=== PATIENT | male | born 1985 | race Caucasian/White ===

== ENCOUNTER 2016-06-28 15:38 | Emergency (ER) | payer SELFPAY ==
--- NOTE | 2016-06-28 16:24 | ED Physician Documentation ---
Sore Throat/Dental Pain - HISTORIAN Historian: patient - HPI Stated Complaint: hx of dental problems, left cheek swollen Chief Complaint: Dental Pain Additional Information: lt upper canione tooth plain facial swelling- pt has very many markedly deteriorated carious and fx teeth Onset: days ago (2-3) Context: Fractured Tooth, Abscess, Dental Caries Associated Symptoms: moderate, severe Worsened By: heat Further Comments: yes (pt must heve dental repain-it is potentially quite deleterious to his health) - ROS CONST: no problems CVS/RESP: none GI/: denies: problems urinating, nausea, vomiting MS/SKIN/LYMPH: denies: muscle aches, rash, leg swelling, ankle swelling NEURO/PSYCH: none - PAST HX Past History: gum disease (most all teeth missing or very poor conditionwith massive pyrorrhea fractures marked discoloration multi caries.) Other History: none Allergies/Adverse Reactions: Allergies Allergy/AdvReac Type Severity Reaction Status Date / Time No Known Allergies Allergy Verified 06/28/16 16:08 Home Medications: Ambulatory Orders Medication Instructions Recorded Amoxicillin [Amoxil] 500 mg PO QID #40 capsule 06/28/16 - SOCIAL HX Smoking History: less than 1 pack/day Alcohol Use: none Drug Use: none - FAMILY HX Family History: No - VITAL SIGNS Vital Signs: Vital Signs Temp Pulse Resp BP Pulse Ox 98.3 F 87 16 122/73 98 06/28/16 16:01 06/28/16 16:01 06/28/16 16:01 06/28/16 16:01 06/28/16 16:01 - REVIEWED ASSESSMENTS Nursing Assessment Reviewed: Yes Vitals Reviewed: Yes Dental Pain Physical Exam - EXAM General Appearance: moderate distress Head/Neck: head nml inspection, trachea midline, maxillary swelling (L), facial erythema, cervical lymphadenopathy, anterior. No: no lymphadenopathy (lt ant cervical) Eyes: eyes nml inspection Mouth/Throat: No: gums nml (marked retraction debris at gumline) Ear/Nose: nml inspection. No: TM erythema Respiratory: no resp. distress, breath sounds nml CVS: reg. rate & rhythm, heart sounds nml Abdomen: soft, non-tender Extremities: non-tender, nml ROM, other (lt bka) Skin: warm/dry, normal color. No: cyanosis Neuro/Psych: No: anxiety, depression Discharge Clincal Impression: lt upper dental sepsis and abscess, marked general very poor dentition Prescriptions: Amoxicillin [Amoxil] 500 mg PO QID #40 capsule Referrals: Primary Doctor,No [Primary Care Provider] - 2 Days Home Medications: Ambulatory Orders Amoxicillin [Amoxil] 500 mg PO QID #40 capsule 06/28/16 Comments: absolutely must see dentist- high risk for sepsis spread Condition: Fair Disposition: HOME, SELF-CARE Decision to Admit: NO Decision Time: 16:34
[2016-06-28 16:46] VITALS: BP 110/70
== END 2016-06-28 16:40 | disposition home or self-care (01) ==
LOC: ED 15:38
DX: K02.9 Dental caries, unspecified (principal)
CPT/HCPCS: 99282